=== PATIENT | male | born 1985 | race Caucasian/White ===

== ENCOUNTER 2019-03-26 06:52 | Day surgery (SDC) | payer OTHER ==
[2019-03-25 13:53] VITALS: BMI 30.6
[~2019-03-26] VITALS: Ht 167.6 cm; Wt 89.1 kg
[2019-03-26] VITALS (11 sets, daily range): BP systolic 103–121; BP diastolic 70–82; PULSE 66–72; RESP 12–17; Ht 167.6 cm; Wt 89.1 kg
[2019-03-26] MEDS ORDERED: CEFAZOLIN 2 GM/50 ML (PMX) 50 ML IVPB SCH (07:00)
[2019-03-26] MEDS ORDERED: SOD CHLORIDE 0.9% 1,000 ML IV SCH (07:00)
[2019-03-26] MEDS ORDERED: BUPIVACAINE 0.25% (MPF) 30 ML INJ ONE (09:21)
[2019-03-26] MEDS ORDERED: LIDOCAINE 2% (MDV) 20 ML INJ ONE (09:28)
[2019-03-26] MEDS ORDERED: BUPIVACAINE 0.5% (SDV) 30 ML INJ ONE (09:28)
[2019-03-26] MEDS ORDERED: LIDOCAINE 2% (SDV) 5 ML INJ ONE (09:45)
[2019-03-26] MEDS ORDERED: FENTAnyl 50 MCG/ML VIAL ONE (09:45)
[2019-03-26] MEDS ORDERED: MIDAZOLAM 1 MG/ML 2 ML INJ ONE (09:45)
[2019-03-26] MEDS ORDERED: PROPOFOL 200 MG INJ ONE (09:45)
[2019-03-26] MEDS ORDERED: HYDROCODONE/APAP (5/325) TAB PO ONE (10:30)
== END 2019-03-26 11:40 | disposition home or self-care (01) ==
LOC: SDS 06:52
PROVIDERS: ATTEND Surgery
DX: D17.1 Benign lipomatous neoplasm of skin and subcutaneous tissue of trunk (principal); E66.9 Obesity, unspecified
CPT/HCPCS: 14000; J2250; J3010; Z7610; 88307; J0690